=== PATIENT | male | born 1945 | race Caucasian/White ===

== ENCOUNTER 2017-10-09 10:40 | Emergency (ER) | payer MEDICARE, BC ==
[2017-10-09 11:18] VITALS: BP 121/68
--- NOTE | 2017-10-09 12:20 | UC ---
Skin Complaint HPI - HPI Summary HPI Summary: 72 year old male with foot pain. No trauma. concern for gout. no fever. no chills. no break in skin. no discharge. Right ankle pain, redness and swelling for 4 days injury, hx of inclusion body myositis. no calf pain. worsening in pain and last night the sheets touching it caused pain. [ End ] - History of Current Complaint Chief Complaint: UCLowerExtremity Time Seen by Provider: 10/09/17 12:00 Stated Complaint: RT ANKLE PAIN Hx Obtained From: Patient Onset/Duration: Gradual Onset Skin Exposure Onset/Duration: Days Ago Timing: Constant Onset Severity: Mild Current Severity: Moderate Aggravating Factor(s): Touch Alleviating Factor(s): Nothing - Allergy/Home Medications Allergies/Adverse Reactions: Allergies Allergy/AdvReac Type Severity Reaction Status Date / Time Ciprofloxacin [From Cipro] Allergy Rash Verified 10/09/17 11:18 Home Medications: Home Medications Dronedarone TAB* [Multaq TAB*] 400 mg PO BID 10/09/17 [History Confirmed ] Ibuprofen TAB* [Motrin TAB* 400 MG] 400 mg PO Q6H PRN 10/09/17 [History Confirmed 10/09/17] Losartan TAB* [Cozaar TAB*] 25 mg PO DAILY 10/09/17 [History Confirmed 10/09/17] Simvastatin [Zocor 5 MG-] 10 mg PO QPM 10/09/17 [History Confirmed 10/09/17] Tamsulosin CAP* [Flomax CAP*] 0.4 mg PO QPM 10/09/17 [History Confirmed 10/09/17 ] Review of Systems Constitutional: Negative Skin: Other - redness in the ankle All Other Systems Reviewed And Are Negative: Yes PMH/Surg Hx/FS Hx/Imm Hx Previously Healthy: Yes - Surgical History Surgical History: Yes Surgery Procedure, Year, and Place: cadiac valve 2011; ablation 09/05/17; cardiac loop implant. Left ankle 2011 - Family History Known Family History: Positive: None - Social History Occupation: Retired Alcohol Use: None Substance Use Type: None Smoking Status (MU): Former Smoker Physical Exam Triage Information Reviewed: Yes Appearance: Well-Appearing, No Pain Distress, Well-Nourished Vital Signs: Initial Vital Signs Temp 98.8 F 10/09/17 11:06 Pulse 95 10/09/17 11:06 Resp 18 10/09/17 11:06 BP 121/68 10/09/17 11:06 Vital Signs Reviewed: Yes Eye Exam: Normal Neck exam: Normal Respiratory Exam: Normal Cardiovascular Exam: Normal Musculoskeletal Exam: Normal Neurological Exam: Normal Psychological Exam: Normal Skin: Positive: Other - left ankle with lateral malleolus with erythema. mild trace pitting edema on the top of the foot. no homans. no streaking. no discharge. no echmymosis . 4x4 cm and very tender to touch Course/Dx - Course Course Of Treatment: Appears to be gout. He is aware do not have POC testing for gout and will treat empiracally at this time. If redness spreads, or he develops fever then go to ED for further eval . - Diagnoses Provider Diagnoses: Gout Right ankle Discharge - Discharge Plan Condition: Good Disposition: HOME Prescriptions: Indomethacin CAP* [Indocin CAP*] 50 mg PO TID PRN #[id number] PRN Reason: Pain Patient Education Materials: Gout (ED) Referrals: Ian Hogan MD [Primary Care Provider] - 4 Days Additional Instructions: If symptoms worsen please return to the Urgent care or go to the Emergency room
== END 2017-10-09 12:30 | disposition home or self-care (01) ==
LOC: UCCORT 10:40
DX: M10.9 Gout, unspecified (principal); Z87.891 Personal history of nicotine dependence
CPT/HCPCS: 99202; G0463

== ENCOUNTER 2017-10-31 09:00 | Emergency (ER) | payer MEDICARE, BC ==
[2017-10-31 09:28] VITALS: BP 114/68
--- NOTE | 2017-10-31 10:13 | UC ---
Skin Complaint HPI - HPI Summary HPI Summary: PT HAS BEEN DEALING WITH RIGHT ANKLE WOUND FOR LAST SEVERAL WEEKS. HAS HAD XRAYS AND US IN [place] THAT WERE REPORTEDLY UNREMARKABLE. IS CURRENTLY ON CLINDAMYCIN AND HAS WOUND CARE APPT AT [facility] IN 4 DAYS. IS HERE REQUESTING DRESSING CHANGE. . - History of Current Complaint Chief Complaint: UCLowerExtremity Time Seen by Provider: 10/31/17 09:44 Stated Complaint: rt ankLE complaint Hx Obtained From: Patient Onset/Duration: Gradual Onset, Lasting Weeks, Still Present Timing: Constant Onset Severity: Moderate Current Severity: Moderate Pain Intensity: 5 Pain Scale Used: 0-10 Numeric Location: Discrete - RIGHT LOWER EXTREMITY Character: Swelling, Pain, Redness Aggravating Factor(s): Touch, Other - WALKING, WEIGHT BEARING Associated Signs & Symptoms: Positive: Drainage, Tenderness. Negative: Fever - Allergy/Home Medications Allergies/Adverse Reactions: Allergies Allergy/AdvReac Type Severity Reaction Status Date / Time Ciprofloxacin [From Cipro] Allergy Rash Verified 10/31/17 09:11 Home Medications: Home Medications Clindamycin HCl [Clindamycin 150 MG CAP*] 300 mg PO TID 10/31/17 [History Confirmed 10/31/17] Rivaroxaban TAB(*) [Xarelto 10 mg (*)] 10 mg PO DAILY 10/31/17 [History Confirmed 10/31/17] Review of Systems Constitutional: Negative Skin: Other - ERYTHEMA, ULCERATION, FLAKING SKIN Respiratory: Negative Cardiovascular: Negative Gastrointestinal: Negative All Other Systems Reviewed And Are Negative: Yes PMH/Surg Hx/FS Hx/Imm Hx Cardiovascular History: Cardiac Disease - AFLUTTER - Surgical History Surgical History: Yes Surgery Procedure, Year, and Place: cadiac valve 2011; ablation 09/05/17; cardiac loop implant. Left ankle 2011. 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 - Family History Known Family History: Positive: None - Social History Alcohol Use: None Substance Use Type: None Smoking Status (MU): Former Smoker Physical Exam Triage Information Reviewed: Yes Appearance: Well-Appearing, No Pain Distress, Well-Nourished Vital Signs: Initial Vital Signs Temp 98.5 F 10/31/17 09:14 Pulse 95 10/31/17 09:14 Resp 16 10/31/17 09:14 BP 114/68 10/31/17 09:14 Pulse Ox 98 01/26/18 09:14 Vital Signs Reviewed: Yes Eyes: Positive: Conjunctiva Clear ENT: Positive: Hearing grossly normal Neck: Positive: Supple Respiratory: Positive: No respiratory distress, No accessory muscle use Cardiovascular: Positive: Pulses Normal Abdomen Description: Positive: Soft Musculoskeletal: Positive: Edema @ - RIGHT FOOT/ANKLE Neurological: Positive: Alert Psychological: Positive: Age Appropriate Behavior Skin: Positive: Other - RIGHT ANKLE WITH SKIN BREAKDOWN/ULCERATION LATERALLY WITH SEROUS DRAINAGE AND SURROUNDING ERYTHEMA AND EDEMA. FLAKING SKIN Course/Dx - Diagnoses Provider Diagnoses: WOUND DEBRIDEMENT RIGHT LOWER EXTREMITY Discharge - Discharge Plan Condition: Stable Disposition: HOME Patient Education Materials: Debridement (ED) Referrals: Ian Hogan MD [Primary Care Provider] - If Needed Additional Instructions: CHANGE DRESSING DAILY UNTIL SEEN BY WOUND CARE IN 4 DAYS. CONTINUE YOUR CLINDAMYCIN PRESCRIBED. ELEVATE THE LEG WHEN SEATED. GO TO THE ER IF YOU DEVELOP WORSENING PAIN, FEVER, PURULENT DRAINAGE OR ANY OTHER CONCERNING SYMPTOMS.
== END 2017-10-31 10:14 | disposition home or self-care (01) ==
LOC: UCCORT 09:00
DX: Z48.00 Encounter for change or removal of nonsurgical wound dressing (principal); S81.811D Laceration without foreign body, right lower leg, subsequent encounter; X58.XXXD Exposure to other specified factors, subsequent encounter; Y92.9 Unspecified place or not applicable; Z87.891 Personal history of nicotine dependence; I48.92 Unspecified atrial flutter; Z95.1 Presence of aortocoronary bypass graft
CPT/HCPCS: 99212; G0463